=== PATIENT | female | born 1955 | race Asian ===

== ENCOUNTER 2017-01-09 19:47 | Inpatient (IN) | payer OTHER ==
[~2017-01-09] VITALS: Ht 157.5 cm; Wt 97.5 kg
[~2017-01-09 19:47] MED LIST: PRILOSEC20 MG PO; ZESTRIL20 MG PO
[2017-01-09 21:08] LABS: BASOPHIL % 0.3 % (0-2); PLATELET COUNT 339 x10^3mcL (130-400); RED CELL DISTRIBUTION WIDTH 13.4 % (11.5-14.5)
[2017-01-09 21:26] LABS: AMPHETAMINE QUAL UR NONE DETECTED (NEG <=1000)
[2017-01-09 21:37] LABS: CALCIUM 8.7 mg/dL (8.5-10.1); CHLORIDE SERUM 105 mmol/L (98-107); GFR1 > 60 mL/min; GLUCOSE SERUM 98 mg/dL (74-106); POTASSIUM SERUM 3.7 mmol/L (3.5-5.1); SODIUM SERUM 138 mmol/L (136-145)
[2017-01-09 21:42] LABS: ALKALINE PHOSPHATASE 92 U/L (46-116); ALT/SGPT 13 U/L (14-59); AST/SGOT 19 U/L (15-37); BILIRUBIN TOTAL 0.3 mg/dL (0.20-1.00)
[2017-01-09 21:54] LABS: ALBUMIN 3.1 g/dL (3.4-5.0); TOTAL PROTEIN, SERUM 8.7 g/dL (6.4-8.2)
[2017-01-09] MEDS ORDERED: LIPI10 PO (22:50)
[2017-01-09 23:37] VITALS: BP 138/59
[2017-01-09 23:57] LABS: PHOSPHOROUS 3.6 mg/dL (2.5-4.9)
[2017-01-10 00:07] LABS: T3 TOTAL 1.05 ng/mL
[2017-01-10 00:09] LABS: FREE T4 1.03 ng/dL (0.76-1.46); FREE THYROXINE INDEX 2.7 ug/dL (1.4-4.5); T4(THYROXINE) 7.4 ug/dL (4.7-13.3)
[2017-01-10 02:20] LABS: microscopic required? YES; urine erythrocyte 2+ (NEGATIVE)
[2017-01-10 05:50] VITALS: BP 127/64
[2017-01-10 07:42] LABS: BASOPHIL % 0.4 % (0-2); PLATELET COUNT 321 x10^3mcL (130-400); RED CELL DISTRIBUTION WIDTH 13.5 % (11.5-14.5)
[2017-01-10 08:06] LABS: CALCIUM 8.8 mg/dL (8.5-10.1); CARBON DIOXIDE 26.3 mmol/L (21-32); CHLORIDE SERUM 106 mmol/L (98-107); CREATININE SERUM 0.8 mg/dL (0.6-1.0); GFR1 > 60 mL/min; GLUCOSE SERUM 95 mg/dL (74-106); POTASSIUM SERUM 3.7 mmol/L (3.5-5.1); SODIUM SERUM 138 mmol/L (136-145)
[2017-01-10 08:30] VITALS: BP 146/77
[2017-01-10 12:08] VITALS: Ht 157.5 cm; Wt 97.5 kg
[2017-01-10 12:49] VITALS: BP 157/82
[2017-01-10 14:30] VITALS: BP 146/81
[2017-01-10 17:30] VITALS: BP 158/88
[2017-01-10 21:49] VITALS: BP 108/54
[2017-01-11 05:20] VITALS: BP 139/66
[2017-01-11 08:40] VITALS: BP 142/88
[2017-01-11 09:51] VITALS: BP 132/62
[2017-01-11] MEDS ORDERED: GOOD SENSE OMEP20 MG PO (11:43)
[2017-01-11 12:01] VITALS: BP 132/62
[2017-01-11] MEDS ORDERED: METFORMIN HYD1000 M2 PO (12:01)
[2017-01-11] MEDS ORDERED: PRILOSEC OTC20 M1 (12:31)
[2017-01-11 13:20] VITALS: BP 138/72
== END 2017-01-11 16:00 | disposition home or self-care (01) | DRG 392 ==
LOC: ED 19:47 → DU 22:42
PROVIDERS: Emergency Medicine; Family Medicine; ADMIT Family Medicine
DX: K21.9 Gastro-esophageal reflux disease without esophagitis (principal); E46 Unspecified protein-calorie malnutrition; I10 Essential (primary) hypertension; E78.5 Hyperlipidemia, unspecified; Z82.49 Family history of ischemic heart disease and other diseases of the circulatory system; E11.65 Type 2 diabetes mellitus with hyperglycemia; E66.9 Obesity, unspecified; Z68.39 Body mass index [BMI] 39.0-39.9, adult; F41.9 Anxiety disorder, unspecified; E11.51 Type 2 diabetes mellitus with diabetic peripheral angiopathy without gangrene
CPT/HCPCS: 82962; 83880; 84439; J7030; Q0092